=== PATIENT | female | born 1975 | race Caucasian/White ===

== ENCOUNTER → 2019-03-26 | Outpatient (CLI) | payer OTHER ==
[~2019-03-26] MED LIST: LOESTRIN 24 FE1 EACH PO; PERCOCET PO
[2019-03-26 11:59] LABS: CREATININE 0.7 mg/dL (0.6-1.0)
== END ==
LOC: CAT 11:27
PROVIDERS: Nurse Practitioner
DX: K76.89 Other specified diseases of liver (principal); N85.2 Hypertrophy of uterus; D25.9 Leiomyoma of uterus, unspecified; J98.11 Atelectasis; R91.1 Solitary pulmonary nodule

== ENCOUNTER → 2020-03-18 | Outpatient (CLI) | payer OTHER | LOC: RAD 12:27 | PROVIDERS: ATTEND Nurse Practitioner | DX: S90.32XA Contusion of left foot, initial encounter (principal); M79.89 Other specified soft tissue disorders; X58.XXXA Exposure to other specified factors, initial encounter; Y93.89 Activity, other specified; Y92.89 Other specified places as the place of occurrence of the external cause; Y99.8 Other external cause status ==